=== PATIENT | male | born 2000 | race Caucasian/White ===

== ENCOUNTER 2018-06-04 19:24 | Emergency (ER) | payer OTHER, SELFPAY ==
[2018-06-04 19:26] VITALS: BP 144/50; PULSE 80; RESP 18; TEMP 36.7; O2SAT 100; BMI 23.1
--- NOTE | 2018-06-04 19:45 | ED.VISSUMM ---
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 Patient has known allergy to shellfish. Says he was eaten stuff tonight he did not know if it had any seafood in it but started feeling tingling of his lips and itching of his throat. Was concerned he was developing allergic reaction and took 2 Benadryl. This occurred about an hour prior to arrival. Otherwise he said he is feeling fine. He is a [employer]. Called his mother and she wanted him evaluated in the urgency department. Physical Examination: Well-appearing young male no acute distress vital signs are stable afebrile. Pulse ox 100% on room air no signs of hypoxia. Initial pressure 140/50. HEENT exam pupils are reactive light. There is absolutely no swelling currently of his lips or tongue. No trouble breathing or swallowing. No stridor or drooling. Normal speech. Normal voice. Neck nontender. Trachea midline. No lymphadenopathy. Lungs clear to auscultation bilaterally no rales rhonchi or wheezing. Heart regular rhythm no murmur. Rate about 80. Abdomen soft nontender. Chest and back nontender. No signs of allergic reaction or rashes. Patient is moving all 4 extremities. No edema or rashes. Neurologically is awake alert with no focal motor deficits. Test Results: None Emergency Department Course and Treatment: Clinically looks well. I explained her the Benadryl may have stopped the potential reaction. He is given a dose of prednisone here and will be observed. Treatment Plan: Benadryl as needed and return if worse. Disposition: Discharge Impression: Allergic reaction resolved This note was generated with [employer] dictation software. It may contain incorrect words, spelling, and punctuation that were not noted in review of the chart prior to signing ED Disposition - Plan for ED Patient: Referrals: NOT,DEFINED [Primary Care Provider] -
[2018-06-04] MEDS: predniSONE 20 MG Tablet 40 MG PO (19:48)
--- NOTE | 2018-06-04 19:48 | ED.DEP ---
ED Disposition - Plan for ED Patient: Disposition: Home or Assisted Living Instructions: ED Allergic Reaction General Other Referrals: NOT,DEFINED [Primary Care Provider] - As Needed Additional Instructions: You should be fine for the rest of the night. Between the Benadryl and the prednisone insured take care of the allergic reaction. Return if you start having significant swelling of her lips or tongue or trouble breathing. However I do not expect this to happen.
[2018-06-04 20:33] VITALS: PULSE 73; RESP 16; O2SAT 97
== END 2018-06-04 20:33 | disposition home or self-care (01) ==
PROVIDERS: Emergency Provider Emergency Medicine
DX: T78.1XXA Other adverse food reactions, not elsewhere classified, initial encounter (principal); R20.2 Paresthesia of skin; L29.9 Pruritus, unspecified; X58.XXXA Exposure to other specified factors, initial encounter; Z91.013 Allergy to seafood
CPT/HCPCS: 99283